=== PATIENT | female | born 1990 | race Caucasian/White ===

== ENCOUNTER 2018-02-01 06:15 | Emergency (ER) | payer OTHER ==
[~2018-02-01] VITALS: Ht 157.5 cm; Wt 71.2 kg
[~2018-02-01 06:15] MED LIST: LOTRIMIN AF12 GM TP; METHERGINE PO
== END 2018-02-01 10:48 | disposition home or self-care (01) ==
LOC: ER 06:15
DX: J11.1 Influenza due to unidentified influenza virus with other respiratory manifestations (principal); J06.9 Acute upper respiratory infection, unspecified; R50.9 Fever, unspecified

== ENCOUNTER 2018-08-20 00:25 | Emergency (ER) | payer OTHER ==
[~2018-08-20] VITALS: Ht 160 cm; Wt 56.7 kg
[2018-08-20] MEDS ORDERED: OBSTETRIX DHA1 EACH PO (06:26)
== END 2018-08-20 06:38 ==
LOC: ER 00:25
DX: O20.0 Threatened abortion (principal); Z34.82 Encounter for supervision of other normal pregnancy, second trimester

== ENCOUNTER 2018-08-22 12:01 | Outpatient (CLI) | payer OTHER ==
[~2018-08-22 12:01] MED LIST changes: +OBSTETRIX DHA1 EACH PO
== END 2018-08-22 16:12 | disposition home or self-care (01) ==
LOC: LAB 12:01
DX: O20.0 Threatened abortion (principal); Z33.1 Pregnant state, incidental

== ENCOUNTER 2018-09-06 01:35 | Emergency (ER) | payer OTHER ==
[~2018-09-06] VITALS: Ht 157.5 cm; Wt 71.7 kg
[2018-09-06] MEDS ORDERED: KEFLEX500 MG PO (04:17)
== END 2018-09-06 04:26 ==
LOC: ER 01:35
DX: O26.891 Other specified pregnancy related conditions, first trimester (principal); R10.2 Pelvic and perineal pain; O23.41 Unspecified infection of urinary tract in pregnancy, first trimester; Z34.01 Encounter for supervision of normal first pregnancy, first trimester

== ENCOUNTER 2018-10-26 20:51 | Emergency (ER) | payer OTHER ==
[~2018-10-26] VITALS: Ht 157.5 cm; Wt 74.4 kg
[~2018-10-26 20:51] MED LIST changes: +KEFLEX500 MG PO
[2018-10-26] MEDS ORDERED: PRENATABS FA T1 EACH (21:31)
== END 2018-10-27 04:00 | disposition home or self-care (01) ==
LOC: ER 20:51
DX: O26.892 Other specified pregnancy related conditions, second trimester (principal); R10.2 Pelvic and perineal pain; Z34.82 Encounter for supervision of other normal pregnancy, second trimester

== ENCOUNTER 2019-03-19 15:06 | Outpatient (CLI) | payer OTHER ==
[~2019-03-19 15:06] MED LIST changes: +PRENATABS FA T1 EACH
== END 2019-03-19 20:58 | disposition home or self-care (01) ==
LOC: OBS/DEL 15:06
DX: O60.03 Preterm labor without delivery, third trimester (principal); Z34.83 Encounter for supervision of other normal pregnancy, third trimester

== ENCOUNTER 2019-03-27 23:58 | Outpatient (CLI) | payer OTHER | END 2019-03-28 11:29 | disposition home or self-care (01) | LOC: OBS/DEL 23:58 | DX: O23.43 Unspecified infection of urinary tract in pregnancy, third trimester (principal); Z34.83 Encounter for supervision of other normal pregnancy, third trimester ==

== ENCOUNTER 2019-04-02 17:38 | Outpatient (CLI) | payer OTHER | END 2019-04-03 21:16 | disposition home or self-care (01) | LOC: OBS/DEL 17:38 | DX: O14.93 Unspecified pre-eclampsia, third trimester (principal); Z34.83 Encounter for supervision of other normal pregnancy, third trimester ==

== ENCOUNTER 2019-04-09 11:21 | Inpatient (IN) | payer OTHER ==
[~2019-04-09] VITALS: Ht 157.5 cm; Wt 79.8 kg
[2019-04-09] MEDS ORDERED: FOLIC ACID1 MG PO (13:30)
[2019-04-09] MEDS ORDERED: IRON325 MG PO (13:30)
== END 2019-04-11 17:17 | disposition home or self-care (01) | DRG 788 ==
LOC: LDR 11:21 → OB/GYN 11:21 → O/R 17:26 → OB/GYN 18:53
PROVIDERS: ADMIT Obstetrics & Gynecology
PROC: 4A0HXFZ Measurement of Products of Conception, Cardiac Rhythm, External Approach (ICD-10-PCS; 2019-04-09)
PROC: 10D00Z1 Extraction of Products of Conception, Low, Open Approach (ICD-10-PCS; principal; 2019-04-09 15:00)
DX: O82 Encounter for cesarean delivery without indication (principal); Z3A.38 38 weeks gestation of pregnancy; Z37.0 Single live birth

== ENCOUNTER 2019-12-29 21:01 | Emergency (ER) | payer OTHER ==
[~2019-12-29] VITALS: Ht 152.4 cm; Wt 83.9 kg
[~2019-12-29 21:01] MED LIST changes: +FOLIC ACID1 MG PO; +IRON325 MG PO
== END 2019-12-29 22:59 | disposition home or self-care (01) ==
LOC: ER 21:01
DX: R05 Cough (principal); R50.9 Fever, unspecified; B96.0 Mycoplasma pneumoniae [M. pneumoniae] as the cause of diseases classified elsewhere

== ENCOUNTER 2020-08-05 19:39 | Emergency (ER) | payer OTHER ==
[~2020-08-05] VITALS: Ht 157.5 cm; Wt 63.5 kg
== END 2020-08-05 22:56 | disposition home or self-care (01) ==
LOC: EMR PED 19:39 → ER 19:49
DX: R50.9 Fever, unspecified (principal); B96.0 Mycoplasma pneumoniae [M. pneumoniae] as the cause of diseases classified elsewhere; Z03.818 Encounter for observation for suspected exposure to other biological agents ruled out

== ENCOUNTER 2021-01-08 18:51 | Emergency (ER) | payer OTHER ==
[~2021-01-08] VITALS: Ht 157.5 cm; Wt 67.6 kg
== END 2021-01-08 22:16 | disposition home or self-care (01) ==
LOC: ER 18:51
DX: J06.9 Acute upper respiratory infection, unspecified (principal); Z03.818 Encounter for observation for suspected exposure to other biological agents ruled out

== ENCOUNTER 2021-09-08 21:40 | Emergency (ER) | payer OTHER ==
[~2021-09-08] VITALS: Ht 157.5 cm; Wt 69.4 kg
[2021-09-08] MEDS ORDERED: ZOFRAN8 MG PO (23:32)
[2021-09-08] MEDS ORDERED: PEPCID AC20 MG PO (23:32)
== END 2021-09-08 23:43 | disposition home or self-care (01) ==
LOC: ER 21:40
DX: K52.89 Other specified noninfective gastroenteritis and colitis (principal)

== ENCOUNTER 2021-12-12 23:49 | Emergency (ER) | payer OTHER ==
[~2021-12-12] VITALS: Ht 157.5 cm; Wt 68.0 kg
[~2021-12-12 23:49] MED LIST changes: +PEPCID AC20 MG PO; +ZOFRAN8 MG PO
== END 2021-12-13 10:37 | disposition home or self-care (01) ==
LOC: ER 23:49
DX: K52.89 Other specified noninfective gastroenteritis and colitis (principal)

== ENCOUNTER 2021-12-27 01:39 | Emergency (ER) | payer OTHER ==
[~2021-12-27] VITALS: Ht 157.5 cm; Wt 72.1 kg
== END 2021-12-27 10:55 | disposition home or self-care (01) ==
LOC: ER 01:39
DX: K52.89 Other specified noninfective gastroenteritis and colitis (principal); R10.84 Generalized abdominal pain; R11.0 Nausea

== ENCOUNTER 2022-03-17 09:29 | Emergency (ER) | payer OTHER ==
[~2022-03-17] VITALS: Ht 157.5 cm; Wt 75.7 kg
== END 2022-03-17 12:12 | disposition home or self-care (01) ==
LOC: ER 09:29
DX: R50.9 Fever, unspecified (principal)

== ENCOUNTER 2022-05-05 02:04 | Emergency (ER) | payer OTHER ==
[~2022-05-05] VITALS: Ht 157.5 cm; Wt 77.1 kg
[2022-05-05] MEDS ORDERED: CEPHALEXIN500 MG PO (05:25)
[2022-05-05] MEDS ORDERED: MUPIROCIN1 G1 TOP (05:25)
== END 2022-05-05 05:29 ==
LOC: ER 02:04
DX: S60.943A Unspecified superficial injury of left middle finger, initial encounter (principal); S60.451A Superficial foreign body of left index finger, initial encounter; X58.XXXA Exposure to other specified factors, initial encounter; Y93.9 Activity, unspecified; Y92.9 Unspecified place or not applicable; Y99.9 Unspecified external cause status

== ENCOUNTER 2023-04-15 11:19 | Emergency (ER) | payer OTHER ==
[~2023-04-15] VITALS: Ht 157.5 cm; Wt 72.6 kg
[~2023-04-15 11:19] MED LIST changes: +CEPHALEXIN500 MG PO; +MUPIROCIN1 G1 TOP
== END 2023-04-15 17:16 | disposition home or self-care (01) ==
LOC: ER 11:19
DX: N39.0 Urinary tract infection, site not specified (principal); N13.2 Hydronephrosis with renal and ureteral calculous obstruction

== ENCOUNTER 2023-04-25 03:49 | Emergency (ER) | payer OTHER ==
[~2023-04-25] VITALS: Ht 157.5 cm; Wt 72.6 kg
== END 2023-04-25 11:14 | disposition home or self-care (01) ==
LOC: ER 03:49
DX: N20.1 Calculus of ureter (principal); N39.0 Urinary tract infection, site not specified; R10.9 Unspecified abdominal pain

== ENCOUNTER 2023-04-30 17:23 | Emergency (ER) | payer OTHER ==
[~2023-04-30] VITALS: Ht 157.5 cm; Wt 76.2 kg
[2023-04-30 19:10] LABS: HEMATOCRIT 33.3 % (36.0-45.00); MEAN CELL VOLUME 79.7 fL (80.00-100.00); MEAN CORPUSCULAR HEMOGLOBIN 26.2 pg (27.00-32.0); MEAN CORPUSCULAR HGB CONC 32.9 g/dl (32.0-36.0); PLATELET COUNT 250 K/uL (150-450); RED BLOOD COUNT 4.18 M/uL (4.00-6.00); RED CELL DISTRIBUTION WIDTH 14.7 % (11.5-14.5)
[2023-04-30 19:44] LABS: CREATININE SERUM 0.84 mg/dL (0.55-1.02); GFR 79.08; POTASSIUM 3.76 mEq/L (3.5-5.1)
== END 2023-05-01 04:21 | disposition home or self-care (01) ==
LOC: ER 17:23
PROVIDERS: Emergency Medicine
DX: U07.1 COVID-19 (principal); N23 Unspecified renal colic

== ENCOUNTER 2024-01-08 08:46 | Emergency (ER) | payer OTHER ==
[~2024-01-08] VITALS: Ht 157.5 cm; Wt 69.9 kg
[2024-01-08] MEDS ORDERED: 0.9 % SODIUM CHLORIDE 1,000 ML IV STA (09:47)
[2024-01-08] MEDS ORDERED: FAMOtidine 10 MG/ML (4ML VIAL) IV STA (09:47)
[2024-01-08] MEDS ORDERED: ONDANSETRON HCL 2 MG/ML VIAL IV STA ×2 (09:48→13:41)
[2024-01-08 10:59] LABS: HEMATOCRIT 33.9 % (36.0-45.00); HEMOGLOBIN 10.9 g/dL (12.0-15.00); MEAN CORPUSCULAR HEMOGLOBIN 25.4 pg (27.00-32.0); MEAN CORPUSCULAR HGB CONC 32.1 g/dl (32.0-36.0); PLATELET COUNT 299 K/uL (150-450); RED BLOOD COUNT 4.29 M/uL (4.00-6.00); RED CELL DISTRIBUTION WIDTH 14.8 % (11.5-14.5)
[2024-01-08 11:04] LABS: CALCIUM 9.3 mg/dL (8.5-10.1); CREATININE SERUM 0.65 mg/dL (0.55-1.02); GFR 105.63; POTASSIUM 3.85 mEq/L (3.5-5.1)
[2024-01-08 12:55] LABS: URINE APPEARANCE Clear; URINE BILIRRUBIN Negative (NEGATIVE); URINE BLOOD Negative; URINE COLOR Yellow; URINE GLUCOSE Negative (NEGATIVE); URINE LEUKOCYTE Negative; URINE NITRATE Negative; URINE PROTEIN Negative (NEGATIVE); URINE UROBILINOGEN 0.2 E.U./dl
[2024-01-08 12:56] LABS: URINE BACTERIA 168.8 uL (0.0-1933); URINE EPITHELIAL CELLS 6.7 uL (0.0-38.8); URINE WBC 4.9 uL (0.0-23.2)
[2024-01-08] MEDS ORDERED: LOPERAMIDE HCL 2 MG CAPSULE PO STA (14:45)
== END 2024-01-08 17:50 | disposition home or self-care (01) ==
LOC: ER 08:46
PROVIDERS: General Practice
DX: E86.0 Dehydration (principal); R11.10 Vomiting, unspecified; Z20.822 Contact with and (suspected) exposure to COVID-19

== ENCOUNTER 2024-04-11 08:19 | Emergency (ER) | payer OTHER ==
[~2024-04-11] VITALS: Ht 157.5 cm; Wt 71.7 kg
[2024-04-11 09:41] LABS: HEMOGLOBIN 10.1 g/dL (12.0-15.00); MEAN CELL VOLUME 74.2 fL (80.00-100.00); MEAN CORPUSCULAR HEMOGLOBIN 24.3 pg (27.00-32.0); MEAN CORPUSCULAR HGB CONC 32.8 g/dl (32.0-36.0); PLATELET COUNT 300 K/uL (150-450); RED BLOOD COUNT 4.17 M/uL (4.00-6.00); RED CELL DISTRIBUTION WIDTH 16.3 % (11.5-14.5)
[2024-04-11 10:25] LABS: URINE APPEARANCE Clear; URINE BILIRRUBIN Negative (NEGATIVE); URINE BLOOD Negative; URINE COLOR Yellow; URINE GLUCOSE Negative (NEGATIVE); URINE LEUKOCYTE Small; URINE NITRATE Negative; URINE PROTEIN Trace (NEGATIVE)
[2024-04-11 10:29] LABS: URINE BACTERIA 764.7 uL (0.0-1933); URINE EPITHELIAL CELLS 21.3 uL (0.0-38.8); URINE RBC 6.1 uL (0.0-20.8); URINE WBC 126.7 uL (0.0-23.2)
[2024-04-11 10:30] LABS: CREATININE SERUM 0.72 mg/dL (0.55-1.02); GFR 93.87; POTASSIUM 3.93 mEq/L (3.5-5.1)
== END 2024-04-11 14:23 | disposition home or self-care (01) ==
LOC: ER 08:20
PROVIDERS: General Practice
DX: O03.9 Complete or unspecified spontaneous abortion without complication (principal)

== ENCOUNTER 2024-07-26 22:57 | Emergency (ER) | payer OTHER ==
[~2024-07-26] VITALS: Ht 152.4 cm; Wt 59.0 kg
[2024-07-27] MEDS ORDERED: TUSNEL LIQUID178 ML PO (00:52)
[2024-07-27] MEDS ORDERED: ZYRTEC10 M3 PO (00:52)
[2024-07-27] MEDS ORDERED: AMOX-CLAV 875-1 EACH PO (00:52)
[2024-07-27] MEDS ORDERED: GUAIFENESIN/DEXTROMETHORPHAN 10ML BLIST.PACK PO ONE (01:00)
[2024-07-27] MEDS ORDERED: CEFTRIAXONE SODIUM 1,000 MG VIAL IM ONE (01:00)
[2024-07-27] MEDS ORDERED: DEXAMETHASONE SODIUM PHOSPHATE 4 MG/ML VIAL IM ONE (01:00)
== END 2024-07-27 01:14 | disposition home or self-care (01) ==
LOC: ER 22:59
DX: J03.80 Acute tonsillitis due to other specified organisms (principal)

== ENCOUNTER 2024-08-01 23:30 | Emergency (ER) | payer OTHER ==
[~2024-08-01] VITALS: Ht 154.9 cm; Wt 68.0 kg
[~2024-08-01 23:30] MED LIST changes: +AMOX-CLAV 875-1 EACH PO; +TUSNEL LIQUID178 ML PO; +ZYRTEC10 M3 PO
[2024-08-02 01:47] LABS: HEMATOCRIT 34.2 % (36.0-45.00); MEAN CELL VOLUME 78.4 fL (80.00-100.00); MEAN CORPUSCULAR HEMOGLOBIN 25.8 pg (27.00-32.0); MEAN CORPUSCULAR HGB CONC 32.9 g/dl (32.0-36.0); PLATELET COUNT 312 K/uL (150-450); RED BLOOD COUNT 4.37 M/uL (4.00-6.00); RED CELL DISTRIBUTION WIDTH 14.8 % (11.5-14.5)
[2024-08-02 01:51] LABS: HEMOGLOBIN 11.3 g/dL (12.0-15.00)
== END 2024-08-02 04:37 | disposition home or self-care (01) ==
LOC: ER 23:31
DX: O20.8 Other hemorrhage in early pregnancy (principal); Z3A.09 9 weeks gestation of pregnancy

== ENCOUNTER → 2024-08-15 | Emergency (ER) | payer OTHER ==
[~2024-08-15] VITALS: Ht 157.5 cm; Wt 72.6 kg
[2024-08-15 22:50] VITALS: BP 124/83; O2SAT 100
[2024-08-16 02:19] LABS: HEMATOCRIT 32.3 % (36.0-45.00); HEMOGLOBIN 10.5 g/dL (12.0-15.00); MEAN CELL VOLUME 77.7 fL (80.00-100.00); MEAN CORPUSCULAR HEMOGLOBIN 25.3 pg (27.00-32.0); MEAN CORPUSCULAR HGB CONC 32.5 g/dl (32.0-36.0); PLATELET COUNT 316 K/uL (150-450); RED BLOOD COUNT 4.16 M/uL (4.00-6.00); RED CELL DISTRIBUTION WIDTH 15.5 % (11.5-14.5)
[2024-08-16 02:33] LABS: INR 0.99; PARTIAL THROMBOPLASTIN TIME 29.3 SECONDS (22.0-34.0); PROTHROMBIN TIME 10.8 SECONDS (9.0-11.5)
[2024-08-16 03:07] LABS: ALBUMIN 3.6 gm/dL (3.4-5.0); BILIRUBIN TOTAL 0.22 mg/dL (0.3-1.2); CALCIUM 9.1 mg/dL (8.5-10.1); CREATININE SERUM 0.49 mg/dL (0.55-1.02); GFR 145.44; GLOBULINA 4.2 G/DL (2.4-3.5); POTASSIUM 4.6 mEq/L (3.5-5.1); TOTAL PROTEIN 7.8 gm/dL (6.4-8.2)
== END | disposition home or self-care (01) ==
LOC: ER 22:27
DX: O03.9 Complete or unspecified spontaneous abortion without complication (principal)

== ENCOUNTER 2024-10-21 01:25 | Emergency (ER) | payer OTHER ==
[~2024-10-21] VITALS: Ht 157.5 cm; Wt 68.0 kg
[2024-10-21 01:31] VITALS: BP 128/75; O2SAT 98
[2024-10-21 05:03] LABS: HEMATOCRIT 34.4 % (36.0-45.00); HEMOGLOBIN 11.1 g/dL (12.0-15.00); MEAN CORPUSCULAR HEMOGLOBIN 24.8 pg (27.00-32.0); MEAN CORPUSCULAR HGB CONC 32.2 g/dl (32.0-36.0); PLATELET COUNT 288 K/uL (150-450); RED BLOOD COUNT 4.47 M/uL (4.00-6.00)
== END 2024-10-21 06:00 | disposition home or self-care (01) ==
LOC: ER 01:27
DX: O26.859 Spotting complicating pregnancy, unspecified trimester (principal)

== ENCOUNTER → 2024-11-02 | Emergency (ER) | payer OTHER ==
[~2024-11-02] VITALS: Ht 157.5 cm; Wt 68.0 kg
[~2024-11-02] MED LIST changes: +KETO10TA2 PO; +KETOROLAC TROMETHAMINE 30 MG VIAL IV ONE; +KETOROLAC TROMETHAMINE 30 MG VIAL ONE
[2024-11-02 21:15] LABS: HEMATOCRIT 34.1 % (36.0-45.00); HEMOGLOBIN 11.1 g/dL (12.0-15.00); MEAN CELL VOLUME 76.3 fL (80.00-100.00); MEAN CORPUSCULAR HEMOGLOBIN 24.8 pg (27.00-32.0); MEAN CORPUSCULAR HGB CONC 32.5 g/dl (32.0-36.0); PLATELET COUNT 326 K/uL (150-450); RED BLOOD COUNT 4.47 M/uL (4.00-6.00); RED CELL DISTRIBUTION WIDTH 15.4 % (11.5-14.5)
[2024-11-02 21:19] LABS: PH,URINE 5.5 (5.0-8.0); URINE APPEARANCE Cloudy; URINE BILIRRUBIN Negative (NEGATIVE); URINE BLOOD Large; URINE COLOR Yellow; URINE GLUCOSE Negative (NEGATIVE); URINE KETONE Trace (NEGATIVE); URINE LEUKOCYTE Moderate; URINE NITRATE Positive; URINE PROTEIN 30 (NEGATIVE); URINE UROBILINOGEN 0.2 E.U./dl
[2024-11-02 21:31] LABS: URINE RBC 111.8 uL (0.0-20.8); URINE WBC 363.1 uL (0.0-23.2)
[2024-11-02 22:00] LABS: URINE BACTERIA > 9821.5 uL (0.0-1933); URINE CAST 1.03 uL (0.0-1.40)
== END | disposition left against medical advice (07) ==
LOC: ER 20:31
PROVIDERS: Emergency Medicine
DX: R10.2 Pelvic and perineal pain (principal)

== ENCOUNTER 2024-11-03 00:35 | Emergency (ER) | payer OTHER ==
[~2024-11-03] VITALS: Ht 157.5 cm; Wt 68.0 kg
[~2024-11-03 00:35] MED LIST changes: -KETO10TA2 PO; -KETOROLAC TROMETHAMINE 30 MG VIAL IV ONE; -KETOROLAC TROMETHAMINE 30 MG VIAL ONE
[2024-11-03] MEDS ORDERED: CEFTRIAXONE SODIUM 1,000 MG VIAL IV STA (01:22)
[2024-11-03] MEDS ORDERED: CEFTRIAXONE SODIUM 1,000 MG VIAL ONE (01:31)
[2024-11-03] MEDS ORDERED: KETO10TA2 PO (01:38)
== END 2024-11-03 01:40 ==
LOC: ER 00:35
DX: N39.0 Urinary tract infection, site not specified (principal)

== ENCOUNTER 2025-04-24 17:53 | Emergency (ER) | payer OTHER ==
[~2025-04-24] VITALS: Ht 157.5 cm; Wt 68.0 kg
[~2025-04-24 17:53] MED LIST changes: +KETO10TA2 PO
[2025-04-24] MEDS ORDERED: ACETAMINOPHEN 500 MG GEL..CAP PO STA (19:03)
[2025-04-24 19:36] LABS: BASO % 0.4 % (0.1-1.2); EOS # 0.07 (0.04-0.54); EOS % 0.8 % (0.7-7.0); LYMPH # 0.55 (1.18-3.74); LYMPH % 6.6 % (19.3-53.1); MEAN PLATELET VOLUME 11.20 fl (9.4-12.4); MONO # 0.69 (0.24-0.82); MONO % 8.3 % (4.7-12.5); NEUT # 6.95 (1.56-6.13); NEUT % 83.7 % (34.0-71.1); RED CELL DISTRIBUTION WIDTH 13.9 % (11.6-14.4)
[2025-04-24 19:46] LABS: COVID-19 AG POSITIVE (NEGATIVE)
== END 2025-04-24 20:59 | disposition home or self-care (01) ==
LOC: ER 17:53
PROVIDERS: Emergency Medicine
DX: U07.1 COVID-19 (principal)

== ENCOUNTER 2025-06-27 23:56 | Emergency (ER) | payer OTHER ==
[~2025-06-27] VITALS: Ht 157.5 cm; Wt 72.6 kg
[2025-06-28 01:53] LABS: BASO % 0.4 % (0.1-1.2); EOS # 0.08 (0.04-0.54); EOS % 0.8 % (0.7-7.0); LYMPH # 3.37 (1.18-3.74); LYMPH % 32.1 % (19.3-53.1); MEAN PLATELET VOLUME 10.50 fl (9.4-12.4); MONO # 0.75 (0.24-0.82); MONO % 7.1 % (4.7-12.5); NEUT # 6.23 (1.56-6.13); NEUT % 59.3 % (34.0-71.1); RED CELL DISTRIBUTION WIDTH 15.0 % (11.6-14.4)
[2025-06-28 02:24] LABS: URINE APPEARANCE Clear; URINE BILIRRUBIN Negative (NEGATIVE); URINE BLOOD Negative; URINE COLOR Yellow; URINE GLUCOSE Negative (NEGATIVE); URINE KETONE Trace (NEGATIVE); URINE LEUKOCYTE Negative; URINE NITRATE Negative; URINE PROTEIN Trace (NEGATIVE); URINE UROBILINOGEN 1.0 E.U./dl
[2025-06-28 02:27] LABS: URINE BACTERIA 1496.3 uL (0.0-1933); URINE EPITHELIAL CELLS 126.1 uL (0.0-38.8); URINE RBC 7.1 uL (0.0-20.8); URINE WBC 7.6 uL (0.0-23.2)
[2025-06-28 02:46] LABS: TYPE CELLS SQUAMOUS; URINE CAST 0.87 uL (0.0-1.40)
== END 2025-06-28 03:44 | disposition home or self-care (01) ==
LOC: ER 23:56
PROVIDERS: General Practice
DX: O26.891 Other specified pregnancy related conditions, first trimester (principal); R10.2 Pelvic and perineal pain; Z3A.01 Less than 8 weeks gestation of pregnancy

== ENCOUNTER 2025-07-14 22:25 | Emergency (ER) | payer OTHER ==
[~2025-07-14] VITALS: Ht 157.5 cm; Wt 72.6 kg
[2025-07-14] MEDS ORDERED: 0.9 % SODIUM CHLORIDE 1,000 ML IV STA (23:18)
[2025-07-14 23:56] LABS: BASO % 0.4 % (0.1-1.2); EOS # 0.05 (0.04-0.54); EOS % 0.6 % (0.7-7.0); LYMPH # 2.85 (1.18-3.74); LYMPH % 33.8 % (19.3-53.1); MEAN PLATELET VOLUME 10.60 fl (9.4-12.4); MONO # 0.58 (0.24-0.82); MONO % 6.9 % (4.7-12.5); NEUT # 4.89 (1.56-6.13); NEUT % 58.1 % (34.0-71.1); RED CELL DISTRIBUTION WIDTH 15.3 % (11.6-14.4)
[2025-07-15 00:52] LABS: ALT/SGPT 19.0 U/L (12-78); AST/SGOT 10.0 U/L (15-37); BILIRUBIN TOTAL 0.45 mg/dL (0.3-1.2); BUN CREA RATIO 17.0 (7.0-25.0); CREATININE SERUM 0.63 mg/dL (0.55-1.02); GFR 108.17; GLOBULINA 4.7 G/DL (2.4-3.5); GLUCOSE FASTING 89.0 mg/dL (65-100); OSMOLALITY SERUM 275.0 MOSM/KG (275-295)
[2025-07-15 00:54] LABS: HCG QUANTITATIVE 53640.0 mUI/mL (1-3)
[2025-07-15] MEDS ORDERED: ONDANSETRON HCL 2 MG/ML VIAL IV STA (01:43)
[2025-07-15] MEDS ORDERED: ACETAMINOPHEN 500 MG GEL..CAP PO STA (01:44)
[2025-07-15] MEDS ORDERED: ONDANSETRON HCL 2 MG/ML VIAL ONE (02:04)
[2025-07-15] MEDS ORDERED: ACETAMINOPHEN 500 MG GEL..CAP PO ONE ×2 (02:04→03:14)
== END 2025-07-15 03:09 | disposition home or self-care (01) ==
LOC: ER 22:25
PROVIDERS: Physician Assistant Medical
DX: O26.891 Other specified pregnancy related conditions, first trimester (principal); G43.909 Migraine, unspecified, not intractable, without status migrainosus; Z3A.01 Less than 8 weeks gestation of pregnancy

== ENCOUNTER 2025-09-16 02:25 | Emergency (ER) | payer OTHER ==
[~2025-09-16] VITALS: Ht 167.6 cm; Wt 90.7 kg
[2025-09-16 02:32] VITALS: BP 115/76; O2SAT 97
[2025-09-16] MEDS ORDERED: GUAIFENESIN 200 MG/10 ML BLIST.PACK PO STA (05:52)
[2025-09-16] MEDS ORDERED: DIPHENHYDRAMINE HCL 12.5 MG/5 ML BLIST.PACK PO STA (05:52)
[2025-09-16] MEDS ORDERED: ACETAMINOPHEN 500 MG GEL..CAP PO STA (05:52)
[2025-09-16] MEDS ORDERED: ACETAMINOPHEN 500 MG GEL..CAP PO ONE (05:59)
[2025-09-16] MEDS ORDERED: GUAIFENESIN 200 MG/10 ML BLIST.PACK PO ONE (06:00)
[2025-09-16] MEDS ORDERED: DIPHENHYDRAMINE HCL 12.5 MG/5 ML BLIST.PACK PO ONE (06:00)
[2025-09-16 06:30] LABS: BASO % 0.5 % (0.1-1.2); EOS # 0.07 (0.04-0.54); EOS % 1.2 % (0.7-7.0); LYMPH # 1.89 (1.18-3.74); LYMPH % 32.3 % (19.3-53.1); MEAN PLATELET VOLUME 11.30 fl (9.4-12.4); MONO # 0.96 (0.24-0.82); NEUT # 2.88 (1.56-6.13); NEUT % 49.3 % (34.0-71.1); RED CELL DISTRIBUTION WIDTH 14.0 % (11.6-14.4)
[2025-09-16 06:42] LABS: MONO % 16.4 % (4.7-12.5)
[2025-09-16 07:02] LABS: COVID-19 AG NEGATIVE (NEGATIVE)
== END 2025-09-16 07:26 | disposition home or self-care (01) ==
LOC: ER 02:25
PROVIDERS: General Practice
DX: J10.1 Influenza due to other identified influenza virus with other respiratory manifestations (principal); Z20.822 Contact with and (suspected) exposure to COVID-19

== ENCOUNTER 2025-10-09 15:53 | Emergency (ER) | payer OTHER ==
[~2025-10-09] VITALS: Ht 157.5 cm; Wt 68.0 kg
[2025-10-09] MEDS ORDERED: ORPHENADRINE CITRATE 30 MG/ML AMPUL IM STA (19:27)
[2025-10-09] MEDS ORDERED: KETOROLAC TROMETHAMINE 30 MG VIAL IM STA (19:27)
[2025-10-09] MEDS ORDERED: DEXAMETHASONE SODIUM PHOSPHATE 4 MG/ML VIAL IM STA (19:27)
[2025-10-09] MEDS ORDERED: IBU600 MG PO (20:16)
== END 2025-10-09 20:49 | disposition home or self-care (01) ==
LOC: ER 15:54
DX: J10.1 Influenza due to other identified influenza virus with other respiratory manifestations (principal); B34.9 Viral infection, unspecified; Z20.822 Contact with and (suspected) exposure to COVID-19